=== PATIENT | male | born 1985 ===

== ENCOUNTER 2017-02-19 12:15 | Emergency (ER) | payer BC ==
[2017-02-19 12:28] VITALS: BP 154/77; PULSE 95; RESP 18; TEMP 99; O2SAT 98
--- NOTE | 2017-02-19 13:09 | ED PDOC ---
HPI: Back Time Seen by Provider: 02/19/17 12:31 Chief Complaint (Nursing): Back Pain Chief Complaint (Provider): Low Back Pain History Per: Patient History/Exam Limitations: no limitations Onset/Duration Of Symptoms: Days (1.5 week) Current Symptoms Are (Timing): Still Present Additional Complaint(s): Juan Diego is a 31 year old male who presents to the Emergency Department complaining of back pain for the past 1.5 weeks, now worse since yesterday. Patient reports lower back pain radiates to right buttocks. Patient denies falling or any recent injuries to his back but he does do heavy lifting on a regular basis at work. Patient admits to taking Advil 800 mg yesterday with minor relief, but denies taking any medications today for pain. Patient also has secondary complaint of headache, subjective fever and body aches that started this morning. He did not measure temperature but felt warm. Patient denies associated congestion, cough, sore throat, nausea, vomiting, diarrhea, dysuria. PMD: Porter Monk Past Medical History Reviewed: Historical Data, Nursing Documentation, Vital Signs Vital Signs: Last Vital Signs Temp 99 F 02/19/17 12:24 Pulse 95 H 02/19/17 12:24 Resp 18 02/19/17 12:24 BP 154/77 H 02/19/17 12:24 Pulse Ox 98 02/19/17 12:24 - Medical History PMH: No Chronic Diseases - Surgical History Surgical History: Tonsillectomy - Family History Family History: States: No Known Family Hx - Living Arrangements Living Arrangements: With Family - Social History Current smoker - smoking cessation education provided: No Alcohol: None Drugs: Denies - Home Medications Home Medications: Ambulatory Orders Medication Instructions Recorded Cyclobenzaprine [Cyclobenzaprine 10 mg PO TID PRN #20 tab 02/19/17 HCl] Naproxen [Naprosyn] 500 mg PO BID #20 tab 02/19/17 traMADol [Ultram] 50 mg PO TID PRN #15 tab 02/19/17 - Allergies Allergies/Adverse Reactions: Allergies Allergy/AdvReac Type Severity Reaction Status Date / Time No Known Allergies Allergy Verified 02/19/17 12:24 Review of Systems ROS Statement: Except As Marked, All Systems Reviewed And Found Negative Constitutional: Positive for: Fever (Subjective, today), Other (Body aches) ENT: Negative for: Nose Congestion, Throat Pain, Throat Swelling Cardiovascular: Negative for: Chest Pain Respiratory: Negative for: Cough Gastrointestinal: Negative for: Nausea, Vomiting, Abdominal Pain Genitourinary Male: Negative for: Dysuria Musculoskeletal: Positive for: Back Pain (radiates to buttocks) Neurological: Positive for: Headache. Negative for: Dizziness Physical Exam - Reviewed Nursing Documentation Reviewed: Yes Vital Signs Reviewed: Yes - Physical Exam Appears: Positive for: Well, Non-toxic Head Exam: Positive for: ATRAUMATIC, NORMAL INSPECTION, NORMOCEPHALIC Skin: Positive for: Normal Color. Negative for: Rash Eye Exam: Positive for: Normal appearance ENT: Negative for: Nasal Congestion, Pharyngeal Erythema Neck: Positive for: Normal, Supple Cardiovascular/Chest: Positive for: Regular Rate, Rhythm Respiratory: Positive for: Normal Breath Sounds. Negative for: Rhonchi, Wheezing, Respiratory Distress Gastrointestinal/Abdominal: Positive for: Normal Exam, Soft. Negative for: Tenderness Back: Positive for: Other (Tenderness across Lower Lumbar Region and right buttocks with palpable muscle spasm, negative bilateral straight leg raise, patient able to heel and toe walk) Extremity: Positive for: Normal ROM Neurologic/Psych: Positive for: Alert, Oriented, Gait (steady) - ECG O2 Sat by Pulse Oximetry: 98 (RA) Pulse Ox Interpretation: Normal - Other Rad L/S Spine x-ray X-Ray: Viewed By [place] X-Ray Interpretation: no fx, no dis Medical Decision Making Medical Decision Making: Time: 12:41 Impression(s): Lower Back Pain, Headache, Bodyaches Plan: - Flexeril 10 mg PO - Toradol 30 mg IM - Tylenol 325 mg Tab - LS Spine AP/LAT X-Ray 14:16 - patient reports only slight improvement pain after medications given. Ultram dose provided. 14:47 - Patient states pain is better. He is aware of all diagnostic testing results. Prescriptions provided for Naprosyn, Flexeril and tramadol. Patient was referred to orthopedist deep well contractor for follow up. Scribe Attestation: Documented by Armond Hernandez, acting as a scribe for CYRUS Schreiber Provider Scribe Attestation: All medical record entries made by the Scribe were at my direction and personally dictated by me. I have reviewed the chart and agree that the record accurately reflects my personal performance of the history, physical exam, medical decision making, and the department course for this patient. I have also personally directed, reviewed, and agree with the discharge instructions and disposition. Disposition - Clinical Impression Clinical Impression: Back strain, Viral illness - Patient ED Disposition Is Patient to be Admitted: No Counseled Patient/Family Regarding: Studies Performed, Diagnosis, Need For Followup, Rx Given - Disposition Referrals: Yogi Hein MD [Medical Doctor] - Disposition: Routine/Home Disposition Time: 14:48 Condition: STABLE Additional Instructions: Take prescription medications as directed as needed for pain. Follow-up with orthopedist for further evaluation of back pain. Tylenol or Motrin for body aches and headache as needed. Rest and drink plenty of fluids. Follow-up with primary doctor in 2-3 days. Prescriptions: Cyclobenzaprine [Cyclobenzaprine HCl] 10 mg PO TID PRN #20 tab PRN Reason: Muscle Spasm Naproxen [Naprosyn] 500 mg PO BID #20 tab traMADol [Ultram] 50 mg PO TID PRN #15 tab PRN Reason: Pain, Moderate (4-7) Instructions: Back Pain (ED), Back Exercises (ED), Muscle Strain (ED), Viral Syndrome (ED) Forms: [employer] ([place]), [facility] ED School/Work Excuse
--- NOTE | 2017-02-19 13:44 | RAD ---
PROCEDURE: Radiographs of the Lumbar Spine. HISTORY: low back pain COMPARISON: None available. FINDINGS: BONES: Alignment appears satisfactory. No listhesis. No acute displaced fracture identified. DISC SPACES: Unremarkable. OTHER FINDINGS: None. IMPRESSION: No acute displaced fracture or subluxation identified.
== END 2017-02-19 14:50 | disposition home or self-care (01) ==
LOC: H.ER 12:15
DX: M54.9 Dorsalgia, unspecified (principal); B34.9 Viral infection, unspecified
CPT/HCPCS: 72100; 87804; 96372; 99282; J1885